=== PATIENT | female | born 1960 ===

== ENCOUNTER 2024-04-07 05:17 | Day surgery (SDC) | payer OTHER ==
[~2024-04-07 05:17] MED LIST: EFEXOR; LAMICTAL200 M1 PO
[2024-04-07] MEDS ORDERED: CEFAZOLIN SODIUM 1,000 MG VIAL IV ONE (08:15)
[2024-04-07] MEDS ORDERED: BUPIVACAINE HCL 30 ML VIAL IJ ONE (08:15)
== END 2024-04-07 10:00 | disposition home or self-care (01) ==
LOC: CIR.AMB 05:17
PROVIDERS: ATTEND Surgery Surgery of the Hand
DX: M65.842 Other synovitis and tenosynovitis, left hand (principal); Z88.6 Allergy status to analgesic agent; F41.8 Other specified anxiety disorders; M19.90 Unspecified osteoarthritis, unspecified site